=== PATIENT | male | born 1950 | race Caucasian/White ===

== ENCOUNTER 2017-01-05 12:32 | Outpatient (CLI) | payer MEDICARE, BC | END 2017-01-05 12:33 | disposition home or self-care (01) | DX: R06.02 Shortness of breath (principal); E78.5 Hyperlipidemia, unspecified; I25.10 Atherosclerotic heart disease of native coronary artery without angina pectoris; Z13.820 Encounter for screening for osteoporosis ==

== ENCOUNTER 2019-02-01 11:11 | Emergency (ER) | payer MEDICARE, BC ==
--- NOTE | 2019-02-01 13:03 | XRAY Report ---
Reason: RIB INJURY Procedure Date: 02/01/2019 Accession Number: [id number] / [id number] Procedure: XR - Ribs w/PA Chest RT CPT Code: FULL RESULT: EXAM: RIGHT RIB RADIOGRAPHY EXAM DATE: 02/01/2019 12:28 PM. CLINICAL HISTORY: RIB INJURY. COMPARISON: 08/07/2011 12:22 PM. TECHNIQUE: 1 view of the chest and 2 views of the ribs. FINDINGS: Bones: There are minimally displaced fractures of the right anterior eighth and ninth ribs in the region of focal pain marked with external BB. No additional fractures identified. Lungs: No focal opacities. No pneumothorax. No pleural effusions. Mediastinum: Heart and mediastinal contours are unremarkable. Other: None. IMPRESSION: Minimally displaced anterior right eighth and ninth rib fractures. RADIA
--- NOTE | 2019-02-01 13:37 | ED Physician Documentation ---
History of Present Illness - Stated complaint Stated Complaint: RIGTH SIDE RIB PAIN - Chief complaint Chief Complaint: Ext Problem - History obtained from History obtained from: Patient - History of Present Illness Timing: How many weeks ago (1) Pain level max: 6 Pain level now: 5 - Additonal information Additional information: 68-year-old male presents the emergency department right-sided rib pain, this [place] items over a metal rail. Hit his right sided chest on the rail. Since then has had pain. Concerned that he may have fractured ribs. Better with rest and worse with palpation Review of Systems Constitutional: denies: Fever Respiratory: denies: Dyspnea, Cough, Wheezing GI: denies: Abdominal Pain, Vomiting, Diarrhea PD PAST MEDICAL HISTORY - Past Medical History Cardiovascular: Hypertension, High cholesterol, Coronary artery disease, MS - Past Surgical History Past Surgical History: Yes General: Bowel surgery (resection due to bowel obstruction) - Present Medications Home Medications: Ambulatory Orders Medication Instructions Recorded Confirmed Aspirin 325 mg PO DAILY 10/26/13 03/15/15 Atazanavir Sulfate [Reyataz] 400 mg PO DAILY 10/26/13 03/15/15 Atorvastatin Calcium [Lipitor] 40 mg PO DAILY 10/26/13 03/15/15 Calcium Carbonate [Calcium] 2,400 mg PO DAILY 10/26/13 03/15/15 Cholecalciferol [Vitamin D3] 2,000 unit PO DAILY 10/26/13 03/15/15 Emtricitabine/Tenofovir [Truvada 1 each PO DAILY 10/26/13 03/15/15 200 mg-300 mg Tablet] Metoprolol Succinate [Toprol Xl] 25 mg PO BID 10/26/13 03/15/15 Multivitamins with Iron 1 each PO DAILY 10/26/13 03/15/15 [Spectravite] Niacin [Slo-Niacin] 1,500 mg PO DAILY 10/26/13 03/15/15 Nitroglycerin [Nitrostat] 0.4 mg SL Q5MIN PRN 10/26/13 03/15/15 Omega3/Dha/Epa/Fish Oil/Vit D3 1 each PO DAILY 10/26/13 03/15/15 [Fish Oil + Vitamin D-3 Softgel] Pantoprazole Sodium [Protonix] 40 mg PO DAILY 10/26/13 03/15/15 Sildenafil Citrate [Viagra] 50 mg PO DAILY 10/26/13 03/15/15 Testosterone [Androgel] 5 gm TD DAILY 10/26/13 03/15/15 Zinc 50 mg PO DAILY 10/26/13 03/15/15 Oxycodone HCl/Acetaminophen 1 - 2 each PO Q6H PRN #15 tablet 03/15/15 [Percocet 5-325 mg Tablet] rOPINIRole [Requip] 0.25 mg PO DAILY 03/15/15 03/15/15 Hydrocodone/Acetaminophen 1 - 2 each PO Q6H PRN #14 tablet 02/01/19 [Hydrocodon-Acetaminophen 5-325] - Allergies Allergies/Adverse Reactions: Allergies Allergy/AdvReac Type Severity Reaction Status Date / Time erythromycin base AdvReac Unknown Rash Verified 02/01/19 11:26 [Erythromycin Base] meprobamate AdvReac Rash Verified 02/01/19 11:26 - Social History Does the pt smoke?: No Smoking Status: Never smoker Does the pt drink ETOH?: No Does the pt have substance abuse?: No - Immunizations Immunizations are current?: Yes - POLST Patient has POLST: No PD ED PE NORMAL - Vitals Vital signs reviewed: Yes - General General: Alert and oriented X 3, No acute distress - Cardiac Cardiac: RRR - Respiratory Respiratory: No respiratory distress, Clear bilaterally, Other (Tender to palpation right anterior chest wall, ribs approximately 7 through 10. No crepitus. No ecchymosis.) - Abdomen Abdomen: Soft, Non tender, Non distended - Derm Derm: Warm and dry - Neuro Neuro: Alert and oriented X 3 Results - Vitals Vitals: Vital Signs - 24 hr 02/01/19 11:24 Temperature 36.5 C Heart Rate 67 Respiratory 20 Rate Blood Pressure 107/75 O2 Saturation 96 Oxygen O2 Source Room air - Rads (name of study) R rib xray Radiology: Prelim report reviewed, EMP read contemporaneously, See rad report (Minimally displaced anterior right eighth and ninth rib fractures. ) PD MEDICAL DECISION MAKING - ED course Complexity details: reviewed results, re-evaluated patient, considered differential, d/w patient ED course: Patient with rib fractures. Will place on pain medication for home. No pneumothorax. No pneumonia. No difficulty breathing. Patient counseled regarding signs and symptoms for which I believe and urgent re-evaluation would be necessary. Patient with good understanding of and agreement to plan and is comfortable going home at this time This document was made in part using voice recognition software. While efforts are made to proofread this document, sound alike and grammatical errors may occur. Departure - Departure Disposition: 01 Home, Self Care Clinical Impression: Ribs, multiple fractures Qualifiers: Encounter type: initial encounter Fracture type: closed Laterality: right Qualified Code(s): S22.41XA - Multiple fractures of ribs, right side, initial encounter for closed fracture Condition: Good Instructions: ED Fx Rib Follow-Up: Charly Molina MD [Primary Care Provider] - Within 1 week Prescriptions: Hydrocodone/Acetaminophen [Hydrocodon-Acetaminophen 5-325] 1 - 2 each PO Q6H PRN #14 tablet PRN Reason: pain Comments: Return if you worsen. Use the medications at prescribed. This will take several weeks to heal. Do not drink alcohol or drive while on narcotic pain medicine. Note that many narcotic pain relievers also contain tylenol/acetaminophen. Please ensure that your total dose of acetaminophen from all sources does not exceed 3 grams (3000mg) per day. You may constipated on this medication, take a stool softener such as "Colace" twice a day while you are on it. Also recommend a mpbc-ved-xmanevf laxative such as senna or MiraLAX any day that you do not have a bowel movement. If you received narcotic pain medication in the emergency department, do not drive or operate machinery for the next 24 hours.
[2019-02-01 13:49] VITALS: BP 108/67
== END 2019-02-01 13:52 | disposition home or self-care (01) ==
LOC: ED 11:11
DX: S22.41XA Multiple fractures of ribs, right side, initial encounter for closed fracture (principal); W22.09XA Striking against other stationary object, initial encounter; Y93.89 Activity, other specified; Y92.89 Other specified places as the place of occurrence of the external cause; I10 Essential (primary) hypertension
CPT/HCPCS: 99283; 99284

== ENCOUNTER 2019-07-05 15:25 | Outpatient (CLI) | payer MEDICARE, BC ==
[2019-07-05 16:11] LABS: CHOL/HDL RATIO 4.2 (<5.0); CHOLESTEROL 114 mg/dL; HDL CHOLESTEROL 27 mg/dL; LDL CHOLESTEROL,CALCULATED 48 mg/dL; LDL/HDL RATIO 1.8 (<3.6); VLDL CHOLESTEROL 39 mg/dL
== END 2019-07-05 15:26 | disposition home or self-care (01) ==
LOC: LAB 15:25
PROVIDERS: ATTEND Internal Medicine Cardiovascular Disease
DX: E78.5 Hyperlipidemia, unspecified (principal)
CPT/HCPCS: 36415; 80061; 83721

== ENCOUNTER 2021-01-01 20:24 | Outpatient (CLI) | payer MEDICARE, BC ==
[2021-01-01 20:57] LABS: CHOL/HDL RATIO 3.8 (<5.0); CHOLESTEROL 157 mg/dL; HDL CHOLESTEROL 41 mg/dL; LDL CHOLESTEROL,CALCULATED 65 mg/dL; LDL/HDL RATIO 1.6 (<3.6); TRIGLYCERIDES 253 mg/dL; VLDL CHOLESTEROL 51 mg/dL
== END 2021-01-01 20:25 | disposition home or self-care (01) ==
LOC: LAB 20:24
PROVIDERS: ATTEND Internal Medicine Cardiovascular Disease
DX: E78.5 Hyperlipidemia, unspecified (principal)
CPT/HCPCS: 36415; 80061; 83721

== ENCOUNTER 2021-02-14 00:34 | Outpatient (CLI) | payer MEDICARE, BC | END 2021-02-14 00:35 | disposition home or self-care (01) | LOC: LAB 00:34 | PROVIDERS: ATTEND Internal Medicine Infectious Disease | DX: Z53.9 Procedure and treatment not carried out, unspecified reason (principal); B20 Human immunodeficiency virus [HIV] disease; E29.1 Testicular hypofunction; R73.9 Hyperglycemia, unspecified ==

== ENCOUNTER 2021-02-14 08:00 | Outpatient (CLI) | payer MEDICARE, BC ==
[2021-02-14 01:13] LABS: HCT - HEMATOCRIT 38.7 % (42.0-52.0); HGB - HEMOGLOBIN 13.4 g/dL (14.0-18.0); MEAN CORPUSCULAR HEMOGLOBIN 31.4 pg (27.0-31.0); MEAN CORPUSCULAR HGB CONC 34.6 g/dL (32.0-36.0); MEAN CORPUSCULAR VOLUME 90.6 fL (80.0-94.0); RED BLOOD COUNT 4.27 10^6/uL (4.70-6.10); RED CELL DISTRIBUTION WIDTH 12.9 % (12.0-15.0); WHITE BLOOD COUNT 5.8 x10^3/uL (4.8-10.8)
[2021-02-14 01:26] LABS: ALBUMIN 4.4 g/dL (3.2-5.5); ALBUMIN/GLOBULIN RATIO 1.5 (1.0-2.2); BILIRUBIN,TOTAL 0.9 mg/dL (0.2-1.0); CALCIUM 9.4 mg/dL (8.5-10.3); CREATININE 1.4 mg/dL (0.6-1.2); POTASSIUM 3.9 mmol/L (3.5-5.0); TOTAL PROTEIN 7.4 g/dL (6.7-8.2)
[2021-02-14 02:07] LABS: THYROID STIMULATING HORMONE 2.73 uIU/mL (0.34-5.60)
[2021-02-14 11:49] LABS: ESTIMATED AVERAGE GLUCOSE 140 mg/dL (70-100); HEMOGLOBIN A1c% 6.5 % (4.27-6.07)
[2021-02-18 13:52] LABS: FREE TESTOSTERONE 4.2 pg/mL (30.0-135.0)
[2021-02-18 15:56] LABS: HIV AG/AB 4TH GEN REPEATEDLY REACTIVE (NON-REACTIVE)
== END 2021-02-14 23:59 | disposition home or self-care (01) ==
LOC: LAB.R 08:00
PROVIDERS: ATTEND Internal Medicine Infectious Disease
DX: B20 Human immunodeficiency virus [HIV] disease (principal); E29.1 Testicular hypofunction; R73.9 Hyperglycemia, unspecified
CPT/HCPCS: 80053; 83036; 84153; 84270; 84402; 84403; 84443; 85027; 86701; 86702; G0475; 87389

== ENCOUNTER 2022-01-13 16:28 | Emergency (ER) | payer MEDICARE, BC ==
--- NOTE | 2022-01-13 16:46 | ED Physician Documentation ---
PD HPI UPPER EXT INJURY - Stated complaint Stated Complaint: R SHOULDER INJ - Chief complaint Chief Complaint: Ext Problem - History obtained from History obtained from: Patient - Additonal information Additional information: 71-year-old gentleman with history of HIV has a known rotator cuff issue in the right shoulder and is actually seeing a surgeon for it and actually has an MRI scheduled tomorrow. The pain was not too bad until today when he did a handstand and the pain got much worse and now cannot range it at all. He is here requesting something for pain. Review of Systems Constitutional: reports: Reviewed and negative Eyes: reports: Reviewed and negative Ears: reports: Reviewed and negative Cardiac: reports: Reviewed and negative Respiratory: reports: Reviewed and negative PD PAST MEDICAL HISTORY - Past Medical History Cardiovascular: Hypertension, High cholesterol, Coronary artery disease, MS Respiratory: None - Past Surgical History Past Surgical History: Yes General: Bowel surgery - Present Medications Home Medications: Ambulatory Orders Medication Instructions Recorded Confirmed Aspirin 325 mg PO DAILY 10/26/13 02/28/21 Atorvastatin Calcium [Lipitor] 80 mg PO DAILY 10/26/13 02/28/21 Metoprolol Succinate [Toprol Xl] 25 mg PO BID 10/26/13 02/28/21 Nitroglycerin [Nitrostat] 0.4 mg SL Q5MIN PRN 10/26/13 02/28/21 Pantoprazole Sodium [Protonix] 40 mg PO DAILY 10/26/13 02/28/21 Sildenafil Citrate [Viagra] 50 mg PO DAILY 10/26/13 02/28/21 rOPINIRole [Requip] 3 mg PO DAILY 03/15/15 02/28/21 Bictegrav/Emtricit/Tenofov [place] 1 each PO DAILY 03/15/19 02/28/21 [Biktarvy 50-200-25 mg Tablet] Gabapentin 600 mg ORAL DAILY 03/15/19 02/28/21 Melatonin 10 mg SL DAILY PM 03/15/19 02/28/21 Naproxen Sodium [Aleve] 220 mg PO DAILY PRN 03/15/19 02/28/21 Nitroglycerin [Nitrostat] 1 tab PO DAILY PRN 02/28/21 02/28/21 HYDROcod/ACETAM 5/325 [[place] 5/325] 1 - 2 tab PO Q6H PRN #20 tablet 01/13/22 - Allergies Allergies/Adverse Reactions: Allergies Allergy/AdvReac Type Severity Reaction Status Date / Time erythromycin base AdvReac Unknown Rash Verified 11/22/19 11:22 [Erythromycin Base] meprobamate AdvReac Rash Verified 11/22/19 11:22 - Social History Does the pt smoke?: No Smoking Status: Never smoker Does the pt drink ETOH?: No Does the pt have substance abuse?: No - Immunizations Immunizations are current?: Yes - POLST Patient has POLST: No PD ED PE NORMAL - Vitals Vital signs reviewed: Yes - General General: Alert and oriented X 3, No acute distress - Neck Neck: Supple, no meningeal sign, No bony TTP - Extremities Extremities: Other (He really cannot actively range the right shoulder at all but passively I can range the shoulder quite well. There is no tenderness of the shoulder itself.) - Neuro Neuro: Alert and oriented X 3, Normal speech Results - Vitals Vitals: Oxygen O2 Source Room air PD MEDICAL DECISION MAKING - ED course ED course: 71-year-old gentleman with an exacerbation of a rotator cuff issue presents for pain control. There does not appear to otherwise be an emergency medical condition. I am prescribing a short course of short-acting opioid pain medication for this patient. 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 I have discussed that the opioids are for short term therapy only, and will not be refilled from the ED. Departure - Departure Disposition: 01 Home, Self Care Clinical Impression: Right rotator cuff tear Qualifiers: Rotator cuff tear extent: unspecified tear extent Rotator cuff tear trauma status: nontraumatic Qualified Code(s): M75.101 - Unspecified rotator cuff tear or rupture of right shoulder, not specified as traumatic Condition: Good Record reviewed to determine appropriate education?: Yes Instructions: ED Tendinitis Rotator Cuff Prescriptions: HYDROcod/ACETAM 5/325 [[place] 5/325] 1 - 2 tab PO Q6H PRN #20 tablet PRN Reason: Pain Comments: I sent your prescription electronically to the [facility] in [place]. Follow-up for MRI tomorrow as scheduled and with your orthopedic surgeon also as scheduled. Return for new or worsening symptoms. I am prescribing a short course of narcotic pain medication for you. These are potentially dangerous and addictive medications that should be used carefully. These medications may constipate you. Take an fobf-noi-kqhqizn stool softener (docusate) twice daily with plenty of water while taking these medications. If you go 24 hours without a bowel movement, take esef-mqj-mkdymea miralax, per package instructions. Do not drink or drive while taking these medications. If you received narcotic or sedating medications while in the emergency department, do not drive for 24 hours. Store this medication in a safe, secure place and out of reach of children. It is a violation of federal law to give or sell this medication to another person or to use in a manner other than prescribed. The ED will not refill narcotic prescriptions, including prescriptions lost or stolen. To dispose of unwanted medications: 1. [facility] at [address] in [place] has a medication drop box. They accept prescription medications (in pill form) Wednesday through Wednesday 9:00 a.m. to 5:00 p.m. 2. The [facility] [employer] accepts prescription medications (in pill form only) for disposal year round. Call for more information. 3. Contact the [facility] for the next [facility] sponsored prescription drug collection event. , [phone], or [phone]; Note that many narcotic pain relievers also contain Tylenol/acetaminophen. Please ensure that your total dose of acetaminophen from all sources does not exceed 3 g (3000 mg) per day.
[2022-01-13] MEDS: HYDROcod/ACETAM 5/325 MG TABLET PO STA (16:47)
[2022-01-13 16:49] VITALS: BP 123/76
== END 2022-01-13 17:03 | disposition home or self-care (01) ==
LOC: ED 16:28
DX: M75.101 Unspecified rotator cuff tear or rupture of right shoulder, not specified as traumatic (principal); I10 Essential (primary) hypertension
CPT/HCPCS: 99282; A9270

== ENCOUNTER 2022-02-10 07:45 | Outpatient (CLI) | payer MEDICARE, BC ==
[2022-02-10 07:59] LABS: HCT - HEMATOCRIT 45.4 % (42.0-52.0); HGB - HEMOGLOBIN 15.4 g/dL (14.0-18.0)
[2022-02-11 18:09] LABS: FREE TESTOSTERONE(DIRECT) 10.3 pg/mL (6.6-18.1)
== END 2022-02-10 07:46 | disposition home or self-care (01) ==
LOC: LAB 07:45
PROVIDERS: ATTEND Internal Medicine Endocrinology, Diabetes & Metabolism
DX: E29.1 Testicular hypofunction (principal)
CPT/HCPCS: 36415; 84402; 84403; 85014; 85018

== ENCOUNTER 2022-09-18 08:00 | Outpatient (CLI) | payer MEDICARE, BC | END 2022-09-18 23:59 | disposition home or self-care (01) | LOC: LAB 08:00 | PROVIDERS: ATTEND Nurse Practitioner | DX: N39.0 Urinary tract infection, site not specified (principal) | CPT/HCPCS: 87077; 87086; 87181 ==

== ENCOUNTER 2022-10-05 14:22 | Emergency (ER) | payer MEDICARE, BC ==
[2022-10-05 15:10] LABS: BILIRUBIN,URINE NEGATIVE (NEGATIVE); GLUCOSE, URINE (UA) 100 mg/dL (NEGATIVE); KETONES,URINE (UA) NEGATIVE (NEGATIVE); LEUKOCYTE ESTERASE, URINE SMALL (NEGATIVE); NITRITE,URINE POSITIVE (NEGATIVE); OCCULT BLOOD,URINE NEGATIVE (NEGATIVE); PH,URINE 7.5 PH (5.0-7.5); PROTEIN,URINE NEGATIVE (NEGATIVE); UROBILINOGEN,URINE 0.2 (NORMAL) E.U./dL (NORMAL)
--- OUTSIDE RECORDS SUMMARY | 2022-10-05 15:16 | EXTERNAL MEDICAL SUMMARY RPT | Continuity of Care Document ---
:1950 Author Organization [facility] Address [address] [place] [address] Phone Care Team Providers Name Role Phone Unavailable Unavailable Unavailable Lucio Glez M.D. Unavailable Unavailable Allergies No information. Encounters No information. Functional Status No information. Immunizations No information. Medications date description facility 2022-08-14 00:00 naproxen sodium [facility] 2022-08-17 00:00 naproxen sodium [facility] 2022-09-18 00:00 naproxen sodium [facility] 2022-09-19 00:00 naproxen sodium [facility] 2022-09-21 00:00 naproxen sodium [facility] 2022-09-22 00:00 naproxen sodium [facility] 2022-09-18 00:00 sulfamethoxazole-trimethoprim [facility] 2022-08-14 00:00 naproxen sodium [facility] 2022-08-17 00:00 naproxen sodium [facility] 2022-09-18 00:00 naproxen sodium [facility] 2022-09-19 00:00 naproxen sodium [facility] 2022-09-21 00:00 naproxen sodium [facility] 2022-09-22 00:00 naproxen sodium [facility] 2022-08-14 00:00 testosterone undecanoate [facility] 2022-08-17 00:00 testosterone undecanoate [facility] 2022-09-18 00:00 testosterone undecanoate [facility] 2022-09-19 00:00 testosterone undecanoate [facility] 2022-09-21 00:00 testosterone undecanoate [facility] 2022-09-22 00:00 testosterone undecanoate [facility] 2022-09-18 00:00 sulfamethoxazole-trimethoprim [facility] 2022-08-14 00:00 testosterone undecanoate [facility] 2022-08-17 00:00 testosterone undecanoate [facility] 2022-09-18 00:00 testosterone undecanoate [facility] 2022-09-19 00:00 testosterone undecanoate [facility] 2022-09-21 00:00 testosterone undecanoate [facility] 2022-09-22 00:00 testosterone undecanoate [facility] 2022-08-14 00:00 testosterone undecanoate [facility] 2022-08-17 00:00 testosterone undecanoate [facility] 2022-09-18 00:00 testosterone undecanoate [facility] 2022-09-19 00:00 testosterone undecanoate [facility] 2022-09-21 00:00 testosterone undecanoate [facility] 2022-09-22 00:00 testosterone undecanoate [facility] 2022-09-18 00:00 sulfamethoxazole-trimethoprim [facility] 2022-08-14 00:00 naproxen sodium [facility] 2022-08-17 00:00 naproxen sodium [facility] 2022-09-18 00:00 naproxen sodium [facility] 2022-09-19 00:00 naproxen sodium [facility] 2022-09-21 00:00 naproxen sodium [facility] 2022-09-22 00:00 naproxen sodium [facility] 2022-08-14 00:00 gabapentin [facility] 2022-08-17 00:00 gabapentin [facility] 2022-09-18 00:00 gabapentin [facility] 2022-09-19 00:00 gabapentin [facility] 2022-09-21 00:00 gabapentin [facility] 2022-09-22 00:00 gabapentin [facility] 2022-08-14 00:00 gabapentin [facility] 2022-08-17 00:00 gabapentin [facility] 2022-09-18 00:00 gabapentin [facility] 2022-09-19 00:00 gabapentin [facility] 2022-09-21 00:00 gabapentin [facility] 2022-09-22 00:00 gabapentin [facility] 2022-08-14 00:00 gabapentin [facility] 2022-08-17 00:00 gabapentin [facility] 2022-09-18 00:00 gabapentin [facility] 2022-09-19 00:00 gabapentin [facility] 2022-09-21 00:00 gabapentin [facility] 2022-09-22 00:00 gabapentin [facility] 2022-08-14 00:00 naproxen sodium [facility] 2022-08-17 00:00 naproxen sodium [facility] 2022-09-18 00:00 naproxen sodium [facility] 2022-09-19 00:00 naproxen sodium [facility] 2022-09-21 00:00 naproxen sodium [facility] 2022-09-22 00:00 naproxen sodium [facility] 2022-08-14 00:00 testosterone undecanoate [facility] 2022-08-17 00:00 testosterone undecanoate [facility] 2022-09-18 00:00 testosterone undecanoate [facility] 2022-09-19 00:00 testosterone undecanoate [facility] 2022-09-21 00:00 testosterone undecanoate [facility] 2022-09-22 00:00 testosterone undecanoate [facility] 2022-08-14 00:00 gabapentin [facility] 2022-08-17 00:00 gabapentin [facility] 2022-09-18 00:00 gabapentin [facility]ino[facility] 2022-09-19 00:00 gabapentin [facility] 2022-09-21 00:00 gabapentin [facility] 2022-09-22 00:00 gabapentin [facility] 2022-09-18 00:00 sulfamethoxazole-trimethoprim [facility] 2022-08-14 00:00 cholecalciferol (vitamin d3 [facility] 2022-08-17 00:00 cholecalciferol (vitamin d3 [facility] 2022-09-18 00:00 cholecalciferol (vitamin d3 [facility] 2022-09-19 00:00 cholecalciferol (vitamin d3 [facility] 2022-09-21 00:00 cholecalciferol (vitamin d3 [facility] 2022-09-22 00:00 cholecalciferol (vitamin d3 Walk[facility] Problems date description facility 2022-08-14 00:00 Viral upper respiratory tract [facility] infection [facility] 2022-08-14 00:00 Acute upper respiratory [facility] & infections of unspecified site [facility] 2022-08-14 00:00 Other disease of nasal cavity and [facility] sinuses [facility] 2022-08-14 00:00 Congestion of nasal sinus Walk[facility]In [facility] val[facility]ino 2022-08-14 00:00 Acute upper respiratory [facility] & infection, unspecified Anc[facility] Service s [facility] 2022-08-14 00:00 Nasal congestion [facility] 2022-09-18 00:00 Acute urinary tract infection [facility] 2022-09-18 00:00 Urinary tract infection, site not [facility] & specified [facility] andino[facility] Procedures date description facility 2022-08-14 00:00 Visit Code Hold [facility] [place] 2022-09-18 00:00 Visit Code Hold [facility] [place] 2022-09-18 00:00 POC URINALYSIS DIP [facility] [place] 2022-08-14 00:00 COVID, FLU A+B Antigen (In Clinic [facility] & Free Test) [facility] Results/Labs test date author facility value unit interpret ation Result panel 1 (unknown) (no date) (unknown) Walk-In (no value) (units (unk nown) Clinic Primary unknown) [facility] Result panel 2 (unknown) (no date) (unknown) Walk-In (no value) (units (unk nown) Clinic Primary unknown) [facility] Result panel 3 (unknown) (no date) (unknown) Walk-In (no value) (units (unk nown) Clinic Primary unknown) [facility] Result panel 4 (unknown) (no date) (unknown) Walk-In (no value) (units (unk nown) Clinic Primary unknown) [facility] Result panel 5 (unknown) (no date) (unknown) Walk-In (no value) (units (unk nown) Clinic Primary unknown) [facility] Result panel 6 (unknown) (no date) (unknown) Walk-In (no value) (units (unk nown) Clinic Primary unknown) [facility] Result panel 7 (unknown) (no date) (unknown) Walk-In (no value) (units (unk nown) Clinic Primary unknown) [facility] Result panel 8 (unknown) (no date) (unknown) Walk-In (no value) (units (unk nown) Clinic Primary unknown) [facility] Result panel 9 (unknown) (no date) (unknown) Walk-In (no value) (units (unk nown) Clinic Primary unknown) [facility] Result panel 10 (unknown) (no date) (unknown) Walk-In (no value) (units (unk nown) Clinic Primary unknown) [facility] Result panel 11 (unknown) (no date) (unknown) Walk-In (no value) (units (unk nown) Clinic Primary unknown) [facility] Result panel 12 (unknown) (no date) (unknown) Walk-In (no value) (units (unk nown) Clinic Primary unknown) [facility] Result panel 13 (unknown) (no date) (unknown) Walk-In (no value) (units (unk nown) Clinic Primary unknown) [facility] Result panel 14 (unknown) (no date) (unknown) Walk-In (no value) (units (unk nown) Clinic Primary unknown) [facility] Result panel 15 (unknown) (no date) (unknown) Walk[facility]In (no value) (units (unk nown) Clinic Primary unknown) [facility] Result panel 16 (unknown) (no date) (unknown) Walk-In (no value) (units (unk nown) Clinic Primary unknown) [facility] Result panel 17 (unknown) (no date) (unknown) Walk-In (no value) (units (unk nown) Clinic Primary unknown) [facility] Result panel 18 (unknown) (no date) (unknown) Walk-In (no value) (units (unk nown) Clinic Primary unknown) [facility] Result panel 19 (unknown) (no date) (unknown) Walk-In (no value) (units (unk nown) Clinic Primary unknown) [facility] Result panel 20 (unknown) (no date) (unknown) Walk-In (no value) (units (unk nown) Clinic Primary unknown) [facility] Result panel 21 (unknown) (no date) (unknown) Walk-In (no value) (units (unk nown) Clinic Primary unknown) [facility] Result panel 22 (unknown) (no date) (unknown) Walk-In (no value) (units (unk nown) Clinic Primary unknown) [facility] Result panel 23 (unknown) (no date) (unknown) Walk-In (no value) (units (unk nown) Clinic Primary unknown) [facility] Result panel 24 (unknown) (no date) (unknown) Walk-In (no value) (units (unk nown) Clinic Primary unknown) [facility] Result panel 25 (unknown) (no date) (unknown) Walk-In (no value) (units (unk nown) Clinic Primary unknown) [facility] Result panel 26 (unknown) (no date) (unknown) Walk-In (no value) (units (unk nown) Clinic Primary unknown) [facility] Result panel 27 (unknown) (no date) (unknown) Walk-In (no value) (units (unk nown) Clinic Primary unknown) [facility] Result panel 28 (unknown) (no date) (unknown) Walk-In (no value) (units (unk nown) Clinic Primary unknown) [facility] Result panel 29 (unknown) (no date) (unknown) Walk-In (no value) (units (unk nown) Clinic Primary unknown) [facility] Result panel 30 (unknown) (no date) (unknown) Walk[facility]In (no value) (units (unk nown) Clinic Primary unknown) [facility] Result panel 31 (unknown) (no date) (unknown) Walk-In (no value) (units (unk nown) Clinic Primary unknown) [facility] Result panel 32 (unknown) (no date) (unknown) Walk-In (no value) (units (unk nown) Clinic Primary unknown) [facility] Result panel 33 (unknown) (no date) (unknown) Walk-In (no value) (units (unk nown) Clinic Primary unknown) [facility] Result panel 34 (unknown) (no date) (unknown) Walk-In (no value) (units (unk nown) Clinic Primary unknown) [facility] Result panel 35 (unknown) (no date) (unknown) Walk-In (no value) (units (unk nown) Clinic Primary unknown) [facility] Result panel 36 (unknown) (no date) (unknown) Walk-In (no value) (units (unk nown) Clinic Primary unknown) [facility] Result panel 37 (unknown) (no date) (unknown) Walk-In (no value) (units (unk nown) Clinic Primary unknown) [facility] Result panel 38 (unknown) (no date) (unknown) Walk-In (no value) (units (unk nown) Clinic Primary unknown) [facility] Result panel 39 (unknown) (no date) (unknown) Walk-In (no value) (units (unk nown) Clinic Primary unknown) [facility] Result panel 40 (unknown) (no date) (unknown) Walk-In (no value) (units (unk nown) Clinic Primary unknown) [facility] Result panel 41 (unknown) (no date) (unknown) Walk-In (no value) (units (unk nown) Clinic Primary unknown) [facility] Result panel 42 (unknown) (no date) (unknown) Walk-In (no value) (units (unk nown) Clinic Primary unknown) [facility] Result panel 43 (unknown) (no date) (unknown) Walk-In (no value) (units (unk nown) Clinic Primary unknown) [facility] Result panel 44 (unknown) (no date) (unknown) Walk-In (no value) (units (unk nown) Clinic Primary unknown) [facility] Result panel 45 (unknown) (no date) (unknown) Walk-In (no value) (units (unk nown) Clinic Primary unknown) [facility] Result panel 46 (unknown) (no date) (unknown) Walk-In (no value) (units (unk nown) Clinic Primary unknown) [facility] Result panel 47 (unknown) (no date) (unknown) Walk-In (no value) (units (unk nown) Clinic Primary unknown) [facility] Result panel 48 (unknown) (no date) (unknown) Walk-In (no value) (units (unk nown) Clinic Primary unknown) [facility] Social History date description facility 2022-09-18 00:00 Former smoker [facility] Vital Signs date measurement value units 2022-08-14 00:00 BP_diastolic 67 mmHg 2022-08-14 00:00 BP_systolic 95 mmHg 2022-08-14 00:00 heart_rate 78 /min 2022-08-14 00:00 height_metric 167 cm 2022-08-14 00:00 height_standard 65.75 in 2022-08-14 00:00 respiration_rate 15 /min 2022-08-14 00:00 temperature_metric 36.72 C 2022-08-14 00:00 temperature_standard 98.1 F 2022-09-18 00:00 BMI 24.81 kg/m2 2022-09-18 00:00 BP_diastolic 85 mmHg 2022-09-18 00:00 BP_systolic 156 mmHg 2022-09-18 00:00 heart_rate 73 /min 2022-09-18 00:00 height_metric 167 cm 2022-09-18 00:00 height_standard 65.75 in 2022-09-18 00:00 respiration_rate 16 /min 2022-09-18 00:00 temperature_metric 36.11 C 2022-09-18 00:00 temperature_standard 97 F 2022-09-18 00:00 weight_metric 68.95 kg 2022-09-18 00:00 weight_standard 152 lb
[2022-10-05 15:24] LABS: BACTERIA,URINE Many /HPF (None Seen); CLARITY,URINE HAZY (CLEAR); RBC,URINE 0-5 /HPF (0-5); SQUAMOUS EPITHELIAL CELL,UR RARE Squamous (<= Few)
[2022-10-05 15:25] LABS: AMORPHOUS SEDIMENT,UR Moderate /LPF
--- NOTE | 2022-10-05 16:49 | ED Physician Documentation ---
PD HPI MALE - Stated complaint Stated Complaint: MALE - Chief complaint Chief Complaint: UTI - History obtained from History obtained from: Patient - History of Present Illness Timing - onset: Yesterday Timing - duration: Days (2) Timing - details: Gradual onset, Still present Associated symptoms: Dysuria, Urinary frequency, Other (clouody urine) PD HPI MALE CONTRIB FACTORS: Not sexually active Similar symptoms before: Diagnosis (UTI) Recently seen: Other - Additional information Additional information: 72-year-old had evidence is an HIV male who was counts are undetectable and who has had a urinary tract infection in August of last year. He took a 7-day course of sulfamethoxazole trimethoprim and symptoms resolved. Urine culture was sensitive. Review of Systems Constitutional: denies: Fever Eyes: denies: Decreased vision Ears: denies: Ear pain Nose: denies: Congestion Throat: denies: Sore throat Cardiac: denies: Chest pain / pressure, Palpitations Respiratory: denies: Dyspnea, Cough GI: denies: Abdominal Pain, Nausea, Vomiting, Constipation, Diarrhea : reports: Dysuria, Frequency. denies: Hematuria Skin: denies: Rash Musculoskeletal: denies: Neck pain, Back pain, Extremity pain PD PAST MEDICAL HISTORY - Past Medical History Cardiovascular: Hypertension, High cholesterol, Coronary artery disease, [place] Respiratory: None - Past Surgical History Past Surgical History: Yes General: Bowel surgery - Present Medications Home Medications: Ambulatory Orders Medication Instructions Recorded Confirmed Aspirin 325 mg PO DAILY 10/26/13 02/28/21 Atorvastatin Calcium [Lipitor] 80 mg PO DAILY 10/26/13 02/28/21 Metoprolol Succinate [Toprol Xl] 25 mg PO BID 10/26/13 02/28/21 Nitroglycerin [Nitrostat] 0.4 mg SL Q5MIN PRN 10/26/13 02/28/21 Pantoprazole Sodium [Protonix] 40 mg PO DAILY 10/26/13 02/28/21 Sildenafil Citrate [Viagra] 50 mg PO DAILY 10/26/13 02/28/21 rOPINIRole [Requip] 3 mg PO DAILY 03/15/15 02/28/21 Bictegrav/Emtricit/Tenofov Ala 1 each PO DAILY 03/15/19 02/28/21 [Biktarvy 50-200-25 mg Tablet] Gabapentin 600 mg ORAL DAILY 03/15/19 02/28/21 Melatonin 10 mg SL DAILY PM 03/15/19 02/28/21 Naproxen Sodium [Aleve] 220 mg PO DAILY PRN 03/15/19 02/28/21 Nitroglycerin [Nitrostat] 1 tab PO DAILY PRN 02/28/21 02/28/21 HYDROcod/ACETAM 5/325 [Wright 5/325] 1 - 2 tab PO Q6H PRN #20 tablet 01/13/22 Sulfamethox/Trimeth 800/160 1 each PO BID #20 tablet 10/05/22 [Bactrim Ds] - Allergies Allergies/Adverse Reactions: Allergies Allergy/AdvReac Type Severity Reaction Status Date / Time erythromycin base AdvReac Unknown Rash Verified 10/05/22 14:50 [Erythromycin Base] meprobamate AdvReac Rash Verified 10/05/22 14:50 - Social History Does the pt smoke?: No Smoking Status: Never smoker Does the pt drink ETOH?: No Does the pt have substance abuse?: No - Immunizations Immunizations are current?: Yes - POLST Patient has POLST: No PD ED PE NORMAL - Vitals Vital signs reviewed: Yes (Normal) - General General: Alert and oriented X 3, No acute distress, Well developed/nourished - HEENT HEENT: Atraumatic, PERRL, EOMI - Neck Neck: Supple, no meningeal sign, No bony TTP - Cardiac Cardiac: RRR, No murmur - Respiratory Respiratory: No respiratory distress, Clear bilaterally - Abdomen Abdomen: Soft, Non tender - Back Back: No CVA TTP, No spinal TTP - Derm Derm: Normal color, Warm and dry, No rash - Extremities Extremities: No deformity, No edema - Neuro Neuro: Alert and oriented X 3, cleaning technician 2-12 intact, No motor deficit, No sensory deficit, Normal speech Eye Opening: Spontaneous Motor: Obeys Commands Verbal: Oriented GCS Score: 15 - Psych Psych: Normal mood, Normal affect Results - Vitals Vitals: Vital Signs - 24 hr 10/05/22 14:46 Temperature 36.3 C L Heart Rate 65 Respiratory 18 Rate Blood Pressure 114/77 O2 Saturation 98 Oxygen O2 Source Room air - Labs Labs: Laboratory Tests 10/05/22 15:02 Urine Color YELLOW Urine Clarity HAZY Urine pH 7.5 Ur Specific [place] 1.015 Urine Protein NEGATIVE Urine Glucose (UA) 100 H Urine Ketones NEGATIVE Urine Occult Blood NEGATIVE Urine Nitrite POSITIVE H Urine Bilirubin NEGATIVE Urine Urobilinogen 0.2 (NORMAL) Ur Leukocyte Esterase SMALL H Urine RBC 0-5 Urine WBC 11-25 H Ur Squamous Epith Cells RARE Squamous Amorphous Sediment Moderate Urine Bacteria Many H Ur Microscopic Review INDICATED Urine Culture Comments INDICATED PD Medical Decision Making - ED course Complexity details: considered differential, d/w patient Reviewed Lab Results: We ordered and reviewed the urinalysis on this patient which indicated that he had a urinary tract infection and the specimen did not appear contaminated and a culture will be obtained. I reviewed the results from the patient's most recent urine culture on 09-18-22 which indicated a Proteus mirabilis which was pansensitive. ED course: 72-year-old male with urinary tract symptoms appears to have evidence of urinary tract infection on evaluation of the urine. I reviewed the patient's prior urine culture indicating it was sensitive to sulfamethoxazole trimethoprim and we have restarted this medication. I did not feel that a change in the medication was indicated. I did discuss with the patient the potential for a call from us if it ends up that the organism is resistant. We will place patient on a 10-day course and I have encouraged the patient to markedly increase his fluid intake. Departure - Departure Disposition: 01 Home, Self Care Clinical Impression: Urinary tract infection Qualifiers: Urinary tract infection type: acute cystitis Hematuria presence: without hematuria Qualified Code(s): N30.00 - Acute cystitis without hematuria Condition: Stable Instructions: ED UTI Cystitis Male Follow-Up: Your, doctor in [place] [Other] Prescriptions: Sulfamethox/Trimeth 800/160 [Bactrim Ds] 1 each PO BID #20 tablet Comments: Ed, today looks like you have another urinary tract infection and we have E scribed the sulfamethoxazole trimethoprim to the [facility] in [place].If you de velop worsening symptoms or do not have improvement follow-up with your primary care doctor or here in the emergency department. If there is a problem with the culture you will get a call from us within the next 2 days.
[2022-10-05] MEDS ORDERED: SULFAMETH/TRIMETH DS 800/160 MG TABLET PO STA (17:03)
[2022-10-05 17:11] VITALS: BP 112/70
== END 2022-10-05 17:11 | disposition home or self-care (01) ==
LOC: ED 14:22
DX: N30.00 Acute cystitis without hematuria (principal); I10 Essential (primary) hypertension
CPT/HCPCS: 81001; 87086; 99283; 99284; A9270; 81003; 87077; 87181

== ENCOUNTER 2022-10-29 17:58 | Emergency (ER) | payer MEDICARE, BC ==
[2022-10-29 18:14] VITALS: BP 120/76
[2022-10-29 18:18] LABS: BILIRUBIN,URINE NEGATIVE (NEGATIVE); GLUCOSE, URINE (UA) NEGATIVE (NEGATIVE); KETONES,URINE (UA) NEGATIVE (NEGATIVE); LEUKOCYTE ESTERASE, URINE SMALL (NEGATIVE); NITRITE,URINE POSITIVE (NEGATIVE); OCCULT BLOOD,URINE TRACE-INTA (NEGATIVE); PROTEIN,URINE TRACE mg/dL (NEGATIVE); UROBILINOGEN,URINE 0.2 (NORMAL) E.U./dL (NORMAL)
[2022-10-29 18:21] LABS: CLARITY,URINE HAZY (CLEAR)
[2022-10-29 18:26] LABS: AMORPHOUS SEDIMENT,UR Rare /LPF; BACTERIA,URINE Many /HPF (None Seen); SQUAMOUS EPITHELIAL CELL,UR RARE Squamous (<= Few); WBC CLUMPS,URINE PRESENT; WBC,URINE >25 /HPF (0-3)
--- OUTSIDE RECORDS SUMMARY | 2022-10-29 18:29 | EXTERNAL MEDICAL SUMMARY RPT | Continuity of Care Document ---
:1950 Author Organization [facility] Address [address] [place] [address] Phone Care Team Providers Name Role Phone Unavailable Unavailable Unavailable Newton Berman, Lucio Unavailable Unavailable Allergies No information. Encounters No information. Functional Status No information. Immunizations No information. Medications date description facility 2022-08-14 00:00 naproxen sodium [facility] 2022-08-17 00:00 naproxen sodium [facility] 2022-09-18 00:00 naproxen sodium [facility] 2022-09-19 00:00 naproxen sodium [facility] 2022-09-21 00:00 naproxen sodium [facility] 2022-09-22 00:00 naproxen sodium [facility] 2022-09-18 00:00 sulfamethoxazole-trimethoprim [facility] 2022-08-14 00:00 naproxen sodium [facility] 2022-08-17 00:00 naproxen sodium [facility] 2022-09-18 00:00 naproxen sodium [facility] 2022-09-19 00:00 naproxen sodium [facility] 2022-09-21 00:00 naproxen sodium [facility] 2022-09-22 00:00 naproxen sodium [facility] 2022-08-14 00:00 testosterone undecanoate [facility] 2022-08-17 00:00 testosterone undecanoate [facility] [...] 2022-09-18 00:00 cholecalciferol (vitamin d3 [facility] 2022-09-19 00:00 cholecalciferol (vitamin d3 [facility] 2022-09-21 00:00 cholecalciferol (vitamin d3 [facility] 2022-09-22 00:00 cholecalciferol (vitamin d3 [facility] [...] 2022-08-14 00:00 Congestion of nasal sinus Walk-In [facility] Services [...] Primary Care & specified [facility] Procedures date description facility 2022-08-14 00:00 Visit Code Hold [facility] [place] 2022-09-18 00:00 Visit Code Hold [facility] [place] 2022-09-18 00:00 POC URINALYSIS DIP [facility] [place] 2022-08-14 00:00 COVID, FLU A+B Antigen (In [...]
--- NOTE | 2022-10-29 18:32 | ED Physician Documentation ---
History of Present Illness - Stated complaint Stated Complaint: MALE - Chief complaint Chief Complaint: Abd Pain - Additonal information Additional information: 72-year-old male presents to the emergency department for evaluation of dysuria urgency frequency and foul-smelling urine. Symptoms began this AM. He denies fevers, flank pain or vomiting. Patient reports that on September 18 he had signs of urinary tract infection was seen at a walk-in clinic. He was started on a 7-day course of bactrim which improved the symptoms however he presented here to the ER on 05 October. Seen by my colleague. At that time thought to have a recurrent UTI and was started on a 10-day course of Bactrim this time. Patient reports he completes a full course of antibiotics but now the symptoms have returned. History obtained from patient as well as review of the [facility] chart. Patient is a good historian. Review of Systems Constitutional: reports: Reviewed and negative Cardiac: reports: Reviewed and negative Respiratory: reports: Reviewed and negative GI: reports: Reviewed and negative : reports: Dysuria, Frequency. denies: Incontinent, Hematuria PD PAST MEDICAL HISTORY - Past Medical History Cardiovascular: Hypertension, High cholesterol, Coronary artery disease, [place] Respiratory: None - Past Surgical History Past Surgical History: Yes General: Bowel surgery - Present Medications Home Medications: Ambulatory Orders Medication Instructions Recorded Confirmed Aspirin 325 mg PO DAILY 10/26/13 02/28/21 Atorvastatin Calcium [Lipitor] 80 mg PO DAILY 10/26/13 02/28/21 Metoprolol Succinate [Toprol Xl] 25 mg PO BID 10/26/13 02/28/21 Nitroglycerin [Nitrostat] 0.4 mg SL Q5MIN PRN 10/26/13 02/28/21 Pantoprazole Sodium [Protonix] 40 mg PO DAILY 10/26/13 02/28/21 Sildenafil Citrate [Viagra] 50 mg PO DAILY 10/26/13 02/28/21 rOPINIRole [Requip] 3 mg PO DAILY 03/15/15 02/28/21 Bictegrav/Emtricit/Tenofov Ala 1 each PO DAILY 03/15/19 02/28/21 [Biktarvy 50-200-25 mg Tablet] Gabapentin 600 mg ORAL DAILY 03/15/19 02/28/21 Melatonin 10 mg SL DAILY PM 03/15/19 02/28/21 Naproxen Sodium [Aleve] 220 mg PO DAILY PRN 03/15/19 02/28/21 Nitroglycerin [Nitrostat] 1 tab PO DAILY PRN 02/28/21 02/28/21 HYDROcod/ACETAM 5/325 [[place] 5/325] 1 - 2 tab PO Q6H PRN #20 tablet 01/13/22 Sulfamethox/Trimeth 800/160 1 each PO BID #20 tablet 10/05/22 [Bactrim Ds] Cefpodoxime Proxetil [Vantin] 100 mg PO Q12H #20 tablet 10/29/22 - Allergies Allergies/Adverse Reactions: Allergies Allergy/AdvReac Type Severity Reaction Status Date / Time erythromycin base AdvReac Unknown Rash Verified 10/29/22 18:14 [Erythromycin Base] meprobamate AdvReac Rash Verified 10/29/22 18:14 - Social History Does the pt smoke?: No Smoking Status: Never smoker Does the pt drink ETOH?: No Does the pt have substance abuse?: No - Immunizations Immunizations are current?: Yes - POLST Patient has POLST: No PD ED PE NORMAL - General General: Alert and oriented X 3, No acute distress - HEENT HEENT: PERRL - Neck Neck: Supple, no meningeal sign, No adenopathy - Cardiac Cardiac: RRR, No murmur - Respiratory Respiratory: No respiratory distress, Clear bilaterally - Abdomen Abdomen: Normal bowel sounds, Soft, Non tender - Male Male : Deferred Results - Vitals Vitals: Vital Signs - 24 hr 10/29/22 10/29/22 18:11 18:14 Temperature 37.0 C Heart Rate 77 Respiratory 16 16 Rate Blood Pressure 120/76 O2 Saturation 97 Oxygen O2 Source Room air - Labs Labs: Laboratory Tests 10/29/22 18:05 Urine Color YELLOW Urine Clarity HAZY Urine pH 8.0 H Ur Specific [place] 1.015 Urine Protein TRACE Urine Glucose (UA) NEGATIVE Urine Ketones NEGATIVE Urine Occult Blood TRACE-INTA Urine Nitrite POSITIVE H Urine Bilirubin NEGATIVE Urine Urobilinogen 0.2 (NORMAL) Ur Leukocyte Esterase SMALL H Urine RBC 6-10 H Urine WBC >25 H Urine WBC Clumps PRESENT Ur Squamous Epith Cells RARE Squamous Amorphous Sediment Rare Urine Bacteria Many H Ur Microscopic Review INDICATED Urine Culture Comments INDICATED PD Medical Decision Making - ED course Complexity details: reviewed results, re-evaluated patient, considered differential, d/w patient ED course: 72 oh male presents emergency department for evaluation of acute dysuria urgency and frequency as well as foul-smelling urine. Symptoms began this a.m. This is his third medical encounter for similar since September 18, 2022. Previous cultures have grown pansensitive Proteus Mirabella's. He was initially treated with first a 7-day course of Bactrim followed by a 10-day course of Bactrim. Though it helped his symptoms very quickly after stopping the antibiotics they came back. It appears on previous sensitivity this Bacteria is most sensitive to cephalosporins. Therefore the patient will be started on Vantin twice daily now for 10 days. Clinically patient has no history or exam findings concerning for an ascending infection or pyelonephritis. I have advised patient follow closely with his PCP we did discuss the usual emergent return precautions. Departure - Departure Disposition: Home, Self Care Clinical Impression: Acute cystitis Qualifiers: Hematuria presence: without hematuria Qualified Code(s): N30.00 - Acute cystitis without hematuria Condition: Stable Record reviewed to determine appropriate education?: Yes Instructions: ED UTI Cystitis Male Prescriptions: Cefpodoxime Proxetil [Vantin] 100 mg PO Q12H #20 tablet Comments: Ed it appears that you do again have a urinary tract infection. Your previous urines have grown bacteria called Proteus Mirabella's. It appears to be most sensitive to a class of drugs called cephalosporins. Therefore we are going to start you on an antibiotic called Vantin. You will take this twice daily. [facility] in [place]. Return to the emergency department if you find that your symptoms or not improving, you develop any lower belly pain, flank pain fevers or vomiting. It is important to discuss this ED visit with your primary care doctor.
[2022-10-29] MEDS ORDERED: CEFPODOXIME PROXETIL 100 MG TABLET PO STA (18:33)
== END 2022-10-29 18:43 | disposition home or self-care (01) ==
LOC: ED 17:58
DX: N30.00 Acute cystitis without hematuria (principal); I10 Essential (primary) hypertension; E78.00 Pure hypercholesterolemia, unspecified; I25.10 Atherosclerotic heart disease of native coronary artery without angina pectoris; I25.2 Old myocardial infarction; Z79.82 Long term (current) use of aspirin; Z79.899 Other long term (current) drug therapy; Z88.1 Allergy status to other antibiotic agents
CPT/HCPCS: 81001; 87077; 87086; 87181; 99283; A9270; 81003

== ENCOUNTER 2022-12-14 14:41 | Outpatient (CLI) | payer MEDICARE, BC ==
[2022-12-14 14:51] LABS: BILIRUBIN,URINE NEGATIVE (NEGATIVE); GLUCOSE, URINE (UA) NEGATIVE (NEGATIVE); KETONES,URINE (UA) NEGATIVE (NEGATIVE); LEUKOCYTE ESTERASE, URINE LARGE (NEGATIVE); NITRITE,URINE NEGATIVE (NEGATIVE); OCCULT BLOOD,URINE TRACE-INTA (NEGATIVE); PROTEIN,URINE NEGATIVE (NEGATIVE); UROBILINOGEN,URINE 0.2 (NORMAL) E.U./dL (NORMAL)
[2022-12-14 15:12] LABS: CLARITY,URINE HAZY (CLEAR); WBC CLUMPS,URINE PRESENT; WBC,URINE >25 /HPF (0-3)
[2022-12-14 15:13] LABS: BACTERIA,URINE Many /HPF (None Seen); SQUAMOUS EPITHELIAL CELL,UR RARE Squamous (<= Few)
== END 2022-12-14 14:42 | disposition home or self-care (01) ==
LOC: LAB 14:41
PROVIDERS: ATTEND Physician Assistant Medical
DX: N40.0 Benign prostatic hyperplasia without lower urinary tract symptoms (principal)
CPT/HCPCS: 81001

== ENCOUNTER 2023-11-15 19:01 | Emergency (ER) | payer MEDICARE, BC ==
--- NOTE | 2023-11-15 19:59 | ED Physician Documentation ---
History of Present Illness - Stated complaint Stated Complaint: FALL/RIB PX - Chief complaint Chief Complaint: Trauma Ch/Bk - History obtained from History obtained from: Patient - Additonal information Additional information: He was having a bad dream last night. He states he in the dream he was trying to get over some logs as there were sharks coming out of him. He fell out of the bed and onto a carpeted floor. He did hit his head, but this was about 15 hours ago and really has no headache, no altered mental status, no nausea. He is not anticoagulated. It is really just the ribs that hurt. Not not too bad unless he takes a deep breath. PD PAST MEDICAL HISTORY - Past Medical History Cardiovascular: Hypertension, High cholesterol, Coronary artery disease, [place] Respiratory: None - Past Surgical History Past Surgical History: Yes General: Bowel surgery - Present Medications Home Medications: Ambulatory Orders Medication Instructions Recorded Confirmed Aspirin 325 mg PO DAILY 10/26/13 02/28/21 Atorvastatin Calcium [Lipitor] 80 mg PO DAILY 10/26/13 02/28/21 Metoprolol Succinate [Toprol Xl] 25 mg PO BID 10/26/13 02/28/21 Nitroglycerin [Nitrostat] 0.4 mg SL Q5MIN PRN 10/26/13 02/28/21 Pantoprazole Sodium [Protonix] 40 mg PO DAILY 10/26/13 02/28/21 Sildenafil Citrate [Viagra] 50 mg PO DAILY 10/26/13 02/28/21 rOPINIRole [Requip] 3 mg PO DAILY 03/15/15 02/28/21 Bictegrav/Emtricit/Tenofov Ala 1 each PO DAILY 03/15/19 02/28/21 [Biktarvy 50-200-25 mg Tablet] Gabapentin 600 mg ORAL DAILY 03/15/19 02/28/21 Melatonin 10 mg SL DAILY PM 03/15/19 02/28/21 Naproxen Sodium [Aleve] 220 mg PO DAILY PRN 03/15/19 02/28/21 Nitroglycerin [Nitrostat] 1 tab PO DAILY PRN 02/28/21 02/28/21 HYDROcod/ACETAM 5/325 [[place] 5/325] 1 - 2 tab PO Q6H PRN #20 tablet 01/13/22 Sulfamethox/Trimeth 800/160 1 each PO BID #20 tablet 10/05/22 [Bactrim Ds] Cefpodoxime Proxetil [Vantin] 100 mg PO Q12H #20 tablet 10/29/22 HYDROcod/ACETAM 5/325 [[place] 5/325] 1 - 2 tab PO Q6H PRN #15 tablet 11/15/23 - Allergies Allergies/Adverse Reactions: Allergies Allergy/AdvReac Type Severity Reaction Status Date / Time erythromycin base AdvReac Unknown Rash Verified 11/15/23 19:16 [Erythromycin Base] meprobamate AdvReac Rash Verified 11/15/23 19:16 - Social History Does the pt smoke?: No Smoking Status: Never smoker Does the pt drink ETOH?: No Does the pt have substance abuse?: No - Immunizations Immunizations are current?: Yes - POLST Patient has POLST: No PD ED PE NORMAL - Vitals Vital signs reviewed: Yes - General General: Alert and oriented X 3, No acute distress - HEENT HEENT: PERRL, EOMI - Neck Neck: Supple, no meningeal sign, No bony TTP - Cardiac Cardiac: RRR, No murmur - Respiratory Respiratory: No respiratory distress, Clear bilaterally, Other (He is tender about rib 4 or 5 in the anterior axillary line. There is no overlying bruising or deformity.) - Abdomen Abdomen: Non tender - Neuro Neuro: Alert and oriented X 3 Eye Opening: Spontaneous Motor: Obeys Commands Verbal: Oriented GCS Score: 15 Results - Vitals Vitals: Vital Signs - 24 hr 11/15/23 19:10 Temperature 36.7 C Heart Rate 71 Respiratory 18 Rate Blood Pressure 133/89 H O2 Saturation 98 Oxygen O2 Source Room air - Rads (name of study) R rib/PA chest Relevant Findings:: Final report received, EMP independent interpretation of test PD Medical Decision Making - ED course ED course: I suspect he does have a hairline rib fracture but the ribs and PA chest film was negative. Thankfully there was no pneumothorax or hemothorax either. He did not really need any pain medication now but was wondering if he might need some later so I did send a prescription to the pharmacy. Departure - Departure Disposition: 01 Home, Self Care Clinical Impression: Fracture of rib Condition: Good Record reviewed to determine appropriate education?: Yes Instructions: ED Fx Rib Prescriptions: HYDROcod/ACETAM 5/325 [[place] 5/325] 1 - 2 tab PO Q6H PRN #15 tablet PRN Reason: Pain Comments: The x-ray does not show rib fracture but I suspect you do have a hairline rib fracture. There is no punctured lung or blood in the chest though and that is good. I did send a prescription for a stronger painkiller to [facility] in [place]. Call your doctor to arrange a follow-up appointment, make the next available appointment. In the interim, return anytime if worse or if new symptoms develop. I am prescribing a short course of narcotic pain medication for you. These are potentially dangerous and addictive medications that should be used carefully. These medications may constipate you. Take an [id number] stool softener (docusate) twice daily with plenty of water while taking these medications. If you go 24 hours without a bowel movement, take [id number] miralax, per package instructions. Do not drink or drive while taking these medications. If you received narcotic or sedating medications while in the emergency department, do not drive for 24 hours. Store this medication in a safe, secure place and out of reach of children. It is a violation of federal law to give or sell this medication to another person or to use in a manner other than prescribed. The ED will not refill narcotic prescriptions, including prescriptions lost or stolen. To dispose of unwanted medications: 1. [facility] provides a drop box for medication in pill for m only (no liquids) 8:00 am to 4:30 p.m. Wednesday-Wednesday in the lobby of the [facility], [address] [place] [address]. Empty pills into ziplock bag before disposal. Call [phone] for information. 2.[employer] is a free service available to all [facility] residents. Go to [email or web address] Note that many narcotic pain relievers also contain Tylenol/acetaminophen. Please ensure that your total dose of acetaminophen from all sources does not exceed 3 g (3000 mg) per day. Forms: PCP List
--- NOTE | 2023-11-15 20:37 | XRAY Report ---
PROCEDURE: Ribs w/PA Chest 3+V RT INDICATIONS: r chest wall inj TECHNIQUE: 3 views of the ribs were acquired, along with a single view chest. COMPARISON: 02/01/2019. FINDINGS: Surgical changes and devices: None. Bones and chest wall: No fractures or dislocations. No suspicious bony lesions. Overlying soft tis sues appear unremarkable. Lungs and pleura: No pleural effusions or pneumothorax. Lungs appear clear. Mediastinum: Mediastinal contours appear normal. Heart size is normal. IMPRESSION: No displaced rib fracture or pneumothorax. Reviewed by: Thang Ambriz MD on 11/15/2023 8:36 PM PST Approved by: Thang Ambriz MD on 11/15/2023 8:36 PM PST Station ID: [id number]
[2023-11-15 21:12] VITALS: BP 145/74; O2SAT 99
== END 2023-11-15 21:12 | disposition home or self-care (01) ==
LOC: ED 19:01
DX: S22.31XA Fracture of one rib, right side, initial encounter for closed fracture (principal); W06.XXXA Fall from bed, initial encounter; I10 Essential (primary) hypertension; E78.00 Pure hypercholesterolemia, unspecified; Z79.82 Long term (current) use of aspirin; Z79.899 Other long term (current) drug therapy
CPT/HCPCS: 99283; 99284